=== PATIENT | female | born 1990 | race Caucasian/White ===

== ENCOUNTER 2024-08-17 08:00 | Outpatient (RCR) | payer MEDICAID, SELFPAY ==
--- NOTE | 2024-08-17 09:05 | BH.SGPN.GN ---
Behaviors/Verbalizations/Mental Status: [] Eye contact is poor. Motor activity is appropriate. Appearance is casual. Speech is Appropriate. Mood is anxious. Affect is congruent. Thoughts are linear and logical. No evidence of psychosis. Reviewed daily check in sheet and no reports of suicidal ideations or intent. Client Response/Progress/Benefit: [] Pt did not participate in group discussions and declined to share. Daily symptom tracker notes 5/5 for anxiety and 4/5 for depression. Today was pt?s first day in IOP level of care. No progress noted. Peer provided support and feedback/advice for her first day and week in IOP which was beneficial. Will continue in IOP to prevent decompensation, decrease anxiety, and improve functioning. Narrative Note: []
--- NOTE | 2024-08-17 10:10 | BH.SGPN.GN ---
Behaviors/Verbalizations/Mental Status: [] Eye contact is fair. Motor activity is appropriate. Appearance is casual. Speech is Appropriate. Mood is anxious. Affect is congruent. Thoughts are linear and logical. No evidence of psychosis. Client Response/Progress/Benefit: [] Pt was an active participant during group discussions and group activities. This portion of group was very psychoeducation heavy and pt was attentive during psychoeducation. Engaged during activity in which they identified which type of foods (i.e. carbs, sugar, salt, fast food, caffeine, etc) they seek out when sad, tired, angry, stressed, anxious, etc. Pt was able to identify the impact that certain foods have on their mental health through group example which was beneficial. Benefited from increased awareness of the connection between nutrition and mental health. Will continue in IOP to decrease anxious avoidance, challenge distortions, and prevent decompensation.
--- NOTE | 2024-08-17 11:10 | BH.SGPN.GN ---
Behaviors/Verbalizations/Mental Status: [] Client alert and oriented, casually dressed and groomed. Eye contact good. Motor activity appropriate. Speech within normal limits. Affect congruent, mood anxious and depressed. Thoughts linear, logical, no signs of hallucinations or delusions. Client Response/Progress/Benefit: []Client was an active participant throughout AEB contributing to group discussion and taking notes. Client provided input during small group discussion on strategies to combat each factor maintaining adverse nutritional cycles. Worked with group to identify ways to foster more mindful nutritional choices. Each group participant identified one small step they could take today to begin establishing mental wellness promoting nutritional choices. Client shared plans to practice drinking more water throughout the day.?Appeared to benefit from gaining insight into mental wellness centered nutrition and identifying personal steps client can take to support own nutritional psychology. Recommended continued IOP tx to improve mood stability, reduce avoidance, and prevent decompensation. Narrative Note: []
--- NOTE | 2024-08-17 14:45 | BH.MTP_ITS ---
Master Treatment Plan Patient Information Program Physician:: Dr. Ace Primary Therapist:: Neela Mike [facility] Psychiatric Diagnoses Psychiatric Diagnoses:: 1. Panic disorder 2. Generalized anxiety disorder 3. Major depressive disorder, recurrent, moderate Diagnosis Code(s):: F41.0; F41.1 Estimated LOS Estimated LOS (in weeks):: 8 Problem/Goal #1 Problem/Goal #1 Stated Goal:: Stabilize anxiety level while increasing ability to function and decreasing ruminative thoughts on a daily basis through Intensive Outpatient Program. Description of Barriers: Potential barriers include high anxiety, difficulty leaving the house, distorted thoughts, and panic attacks. Functional Impact: The patient is a 34-year-old female with a history of anxiety and depression and panic attacks who was referred by a friend to the [facility] behavioral health IOP due to new onset of daily panic attacks since June 2024. The patient states that her symptoms started June 29, 2024 when she had her first possible panic attack at work and went to urgent care but they told her the symptoms were more likely due to her history of migraine headaches. Several days later the patient had a severe panic attack at her uncle's and went to the emergency room and was given Ativan which helped her symptoms. The patient was off work for 3 weeks but has since returned to work after her primary care doctor prescribed Ativan. She e ndorses sadness, low motivation, hopelessness but denies worthlessness. She endorses guilt, anhedonia, low energy. She is sleeping about 5 hours a night. She is having 4-5 panic attacks a week. Objectives Objective #1: Stated Objective: Client will learn and implement 2-3 calming skills to reduce overall anxiety and manage anxiety symptoms. Interventions: Therapist and group sessions will help client identify physiological warning signs of anxiety, increase awareness of thoughts that increase anxiety, and identify behaviors that reinforce anxious symptoms. Group and individual counseling will teach client calming skills to help manage anxious symptoms. Discharge Criteria: Discharge Criteria: Client will have achieved this goal when can verbalize at least 2 calming skills and reports skills successfully help reduce anxious symptoms. Target Date: 10/12/24 Review Date: 09/14/24 Objective #2: Stated Objective: Client will identify 2-3 anxiety triggers and 2 coping skills to use when feeling anxious. Interventions: Therapist will assist client in exploring what triggers anxiety and teach client coping strategies to effectively manage anxiety symptoms. Discharge Criteria: Client will have met this goal when can identify at least 2 triggers to anxiety and verbalize two healthy ways to cope with feelings of anxiety. Target Date: 10/12/24 Review Date: 09/14/24 Problem/Goal #2 Problem/Goal #2 Stated Goal:: Client will reduce depressive symptoms, feelings of worthlessness, and anhedonia due to Major Depressive Disorder through Intensive Outpatient Program. Description of Barriers: Potential barriers include high anxiety, difficulty l eaving the house, distorted thoughts, and panic attacks. Functional Impact: The patient is a 34-year-old female with a history of anxiety and depression and panic attacks who was referred by a friend to the [facility] behavioral health IOP due to new onset of daily panic attacks since June 2024. The patient states that her symptoms started Novemb er 2023 when she had her first possible panic attack at work and went to urgent care but they told her the symptoms were more likely due to her history of migraine headaches. Several days later the patient had a severe panic attack at her uncle's and went to the emergency room and was given Ativan which helped her symptoms. The patient was off work for 3 weeks but has since returned to work after her primary care doctor prescribed Ativan. She endorses sadness, low motivation, hopelessness but denies worthlessness. She endorses guilt, anhedonia, low energy. She is sleeping about 5 hours a night. She is having 4-5 panic attacks a week. Objectives Objective #1: Stated Objective: Client will learn and implement 2-3 calming skills to reduce overall anxiety and manage anxiety symptoms. Interventions: Therapist and group sessions will help client identify physiological warning signs of anxiety, increase awareness of thoughts that increase anxiety, and identify behaviors that reinforce anxious symptoms. Group and individual counseling will teach client calming skills to help manage anxious symptoms. Discharge Criteria: Client will have achieved this goal when can verbalize at least 2 calming skills and reports skills successfully help reduce anxious symptoms. Target Date: 10/12/24 Review Date: 09/14/24 Objective #2: Stated Objective: Client will identify and replace 2-3 negative thinking patterns that reinforce depressive symptoms. Interventions: Therapist will assist client in developing an awareness of the cognitive messages that reinforce depressive thinking. Therapist will also assist client in challenging negative thinking patterns. Discharge Criteria: Client will have achieved this goal when can identify at least 2 negative thinking patterns, replace negative thinking with more positive, affirmative messages. Target Date: 10/12/24 Review Date: 09/14/24
--- NOTE | 2024-08-18 10:10 | BH.SGPN.GN ---
Behaviors/Verbalizations/Mental Status: [] Eye contact is good. Motor activity is appropriate. Appearance is casual. Speech is Appropriate. Mood is depressed. Affect is flat. Thoughts are linear and logical. No evidence of psychosis. Client Response/Progress/Benefit: [] Pt was an active participant in group discussions. Attentive during psychoeducation on the 4 communication styles (Passive, Passive-Aggressive, Aggressive, and Assertive) and the obstacles to effective communication. ?Self-identified a barrier they personally struggle with shutting down. Contributed during interactive discussion on the benefits of communicating effectively which included; having one's needs met, decreases stress and uncertainty, improved relationships, healthier boundaries, and avoids unnecessary conflict. Worked well with peers to identify the benefits and disadvantages to the different communication styles. Benefited from increased understanding of communication styles and how these can impact effective communication. Will continue in IOP to prevent decompensation, maintain safety, and gain healthy coping skills. Narrative Note: []
--- NOTE | 2024-08-18 10:16 | BH.MDN ---
Multi-Disciplinary Note Note 30-min Individual: Time Started:: 09:20 Date: 08/18/24 Purpose of session/treatment goals addressed:: Purpose of session was to address goals 1 and 2 from MTP. Eye Contact:: Poor Motor Activity:: Appropriate Appearance:: Neat Speech:: Soft Mood:: Anxious and Depressed Affect:: Constricted Thoughts:: Linear, Logical and No evidence of hallucinations/delusions noted Staff Interventions:: psychoeducation on: (cognitive triangle and anxiety), CBT techniques, rapport building, strengths perspective, treatment planning, goal setting and taught coping skills (breathing) Client Response:: Client shared she is seeking mental treatment for the first time due to struggling with panic attacks and depressed symptoms. Client stated last month she started to have panic attacks which she stated is something that she has never had previously. Client stated she struggled with anxiety off and on throughout her life but overall is been able to function and get through those moments. Client stated frustration that she has not been able to just move on. Client reported her panic attacks had gotten so bad that she had to take 3 weeks off work and now is back to work but can only make it through the day if she is taking her Ativan. Client stated she has attempted to go to work without her Ativan and it resulted in her having a panic attack. Client reported currently she goes to work and goes home. Client stated she is able to get her daily responsibilities completed at home and take care of her children but beyond that she does not do much. Client reported she is to be more engaged with family and friends and more outgoing but some struggling with this anxiety and depressed symptoms she is more isolated and withdrawn. Client responded well to psychoeducation about cognitive triangle recognizing that thoughts behaviors and emotions are interconnected. Client also responded well to psychoeducation about the negative impact avoidance of anxious situations can actually create more anxiety for her. Client could relate to the fact that she has a hard time going to social situations because she has been avoiding them. Client receptive to learning about diaphragmatic breathing and grounding tools. Client provided handouts that described belly breathing and grounding tools. Client stated while she is in IOP she would like to work on learning ways to manage her anxiety and depression better and to get back to her normal functioning. Client agreeable to start practicing belly breathing and grounding tools to start working on calming her nerves system back down and teach her body and brain how to relax again. Risks/Concerns:: Denies suicidal ideation, plan, intention. Future oriented. Identifies children as protective factor. Progress Toward Goals/Plan:: Progress limited given first week in IOP. Client does seem a bit anxious about opening up given she has never been in treatment before for mental health. Session focused on building rapport providing psychoeducation about mental health. Client reporting significant anxiety and depression that is making it challenging to function beyond being at work and home functioning. Client unable to work unless she is taking her Ativan. Plan is for client to continue IOP to improve daily functioning, increase healthy coping skills, and prevent decompensation. Time Stopped:: 09:55
--- NOTE | 2024-08-18 11:10 | BH.SGPN.GN ---
Behaviors/Verbalizations/Mental Status: []Pt alert and oriented, casually dressed. Eye contact fair. Motor activity appropriate. Speech within normal limits. Affect congruent, mood anxious. Thoughts linear, logical, no signs of hallucinations or delusions. Client Response/Progress/Benefit: [] Pt responded well to session AEB Pt listening attentively to others and providing input during group discussion on the pay offs and costs of the different communication styles. Pt able to connect how current communication style impacts mental health. Connected with peers? comments about importance of using assertive communication. Pt did well with practicing being assertive in the group activity and worked with group to identify potential skills for improving communication skills. Pt seemed to benefit from increasing awareness of healthy strategies to improve communication. Will continue IOP tx to improve daily functioning, decrease anxious avoidance, and prevent decompensation.
--- NOTE | 2024-08-23 09:00 | BH.SGPN.GN ---
Behaviors/Verbalizations/Mental Status: [] Eye contact is poor. Motor activity is appropriate. Appearance is casual. Speech is Appropriate. Mood is depressed. Affect is flat. Thoughts are linear and logical. No evidence of psychosis. Reviewed daily check in sheet and no reports of suicidal ideations or intent. Client Response/Progress/Benefit: [] Pt participated only when prompted. Distracted. Looking down at ground for majority of the group. Daily symptom tracker notes 4/5 for anxiety and 3/5 for depression/irritability. She shared however stated her mental health wins was ?making it in today?. Also reports that she ?got out of the house? this weekend. Possibility decreased isolation. Shared a stressor related to her daughter as well. Progress noted as she may be getting more comfortable in group setting as she shared. Benefited from group support, encouragement, and feedback. Will continue in IOP to prevent decompensation, stabilize anxiety, and improve functioning. Narrative Note: []
--- NOTE | 2024-08-23 10:10 | BH.SGPN.GN ---
Behaviors/Verbalizations/Mental Status: []Client alert and oriented, casually dressed and groomed. Eye contact good. Motor activity appropriate. Speech within normal limits. Affect congruent, mood anxious. Thoughts linear, logical, no signs of hallucinations or delusions. Client Response/Progress/Benefit: []Pt responded well to session AEB actively participating throughout group. Pt was attentive throughout group activity discussing famous individuals and how they overcame failure to be successful. Pt helped group identify how fear of failure can impact mental health and relationships. Pt personally identified fear of failure has led to pt not moving and staying stuck. Participated in experiential activity, working with group members to problem solve. Appeared to benefit from increased knowledge of what causes fear of failure and how it impacts people. Will continue IOP tx to prevent decompensation, improve daily functioning and learn healthy coping skills. Narrative Note: []
--- NOTE | 2024-08-23 11:10 | BH.SGPN.GN ---
Behaviors/Verbalizations/Mental Status: []Pt alert and oriented, casually dressed and groomed. Eye contact fair. Motor activity appropriate. Speech within normal limits. Affect congruent, mood anxious. Thoughts linear, logical, no signs of hallucinations or delusions. Client Response/Progress/Benefit: [] Pt responded well to session, engaged in the experiential activity and attentive throughout group processing. Pt reported fear of failure has kept pt from going back to school and moving out of state. Pt completed fear of failure worksheet and was able to identify thoughts and behaviors that reinforce personal fear of failure. Pt participated in small group discussion regarding strategies to overcome fear of failure. Identified wanting to work on opposite action and asking for help.?Appeared to benefit from increased knowledge of strategies to combat fear of failure and gaining self-awareness. Pt will continue IOP tx to increase use of healthy coping skills, challenge distorted thoughts, and prevent decompensation.
--- NOTE | 2024-08-25 10:00 | BH.NA_ITS ---
Physical Data Vital Signs Pulse Rate: 79 Blood Pressure: 148/99 Height/Weight Height: 1.68 m Weight:: 58.06 kg Weight in Pounds: 128.0 lbs Current Medication Compliance Medication Compliance Do you take your medication as prescribed?: Yes Nutritional History Appetite Nutritional Instructions: Describe your appetite:: Poor Additional nutritional information:: Client states she has lost about 17lbs in the last month unintentionally. Functional Assessment Sleep Pattern Describe any problems with sleeping: Client states she sleeps 4-5 hours per night. Sensory/Communication Assess Communication Problems Do you have difficulty understanding what people are saying?: No Medical Problems/History Cardiac Conditions Cardiovascular: Hypertension (history of hypertension, has been on medication for it in the past but not currently) and Other (See comments) (Client states she was told she had a heart murmur when she was in the ER in June 2024 and was told to follow up with cardiology) Neurological Conditions Neurological: Other (See comments) (migraines) Pain Assessment Do you have acute or chronic pain?: No Surgical History Surgical History Have you had any surgeries? If so, list type and date:: Yes ( x 1) Substance Abuse Substance Abuse Please describe substance abuse in the last 30 days:: Client denies alcohol, tobacco or substance use. Client denies caffeine use. Mental Status Summary Mental Status Significant Findings/Observations on Appearance and Mood:: Client is alert and oriented x 4. Client is casually groomed with good hygiene. Client is cooperative with assessment. Client makes fair eye contact. Client's voice has normal rate and volume. Client has a somewhat restricted affect. Client makes logical associations and has normal processing. Client denies delusions/hallucinations. Client denies SI. Suicide Assessment Suicidal Ideation Are you currently or have you been suicidal in the past?: No Suicidal Intentional Rating Scale (SIRS): No suicidal thoughts (past or present) Physician Notification Past Psychiatric History MH Treatment Hx Past Psychiatric Medications:: Was on Seroquel for about 2 weeks recently Age of first mental health symptoms: Client was started on Celexa in June 2024 after she started having panic attacks. Describe (age, circumstance, etc) any past hospitalizations: None. Current providers for mental health treatment (counselor, psychiatrist, field nurse case manager, etc.): None. Fall Risk Assessment Age Age: Less than 60 Mental Status Mental Status: Willing & able to ask for assistance when needed Physical Status Physical Status: No problems Impairments Impairments: None Elimination Elimination: Continent AND independent Gait or Balance Gait or Balance: Walks independently Hx of Falls History of falls in the past 6 months: No known history Medications/Substances Psychotropics:: Antidepressants and Anxiolytics (e.g. benzodiazepines) RN Summary of Impressions Impressions Recommendations Impressions: Psychiatric Issues: 1. Panic disorder 2. Generalized anxiety disorder 3. Major depressive disorder, recurrent, moderate Impression: General Medical Conditions: Discussed client's BP 148/99- client states she has a history of hypertension Level of Care How do the client's current symptoms and functional deficits support need for this level of care?: Client was referred to IOP by a friend due to recently having panic attacks. Client states she had never had panic attacks before June 2024, and has had fairly frequent panic attacks since then. Client states she went to the ER twice in June 2024 feeling like she was going to pass out with high BP and was told her symptoms were due to migraines. Later in June, client went to her uncle's and had a panic attack where her HR was 180, her body felt numb and her hands were so tense she could not open them. Client states she was given Ativan in the ER which did help. Client states after this, her PCP started on her Celexa and gave her PRN Ativan. Client states she is still having panic attacks at times now, but states sometimes she can reduce symptoms as they begin and they are not all debilitating panic attacks. IOP will promote gains and prevent further decompensation while providing social support and skills training.
[2024-08-25 10:17] VITALS: BP 148/99; PULSE 79
--- NOTE | 2024-08-25 12:36 | PCM.BH.PSYEV ---
Psychiatric Evaluation Initial Evaluation Initial Evaluation: History of Present Illness: [] The patient is a 34-year-old female with a history of anxiety and depression and panic attacks who was referred by a friend to the [facility] behavioral health IOP due to new onset of daily panic attacks since June 2024. The patient currently lives with her and children and has been for 5 years. She works as an [employer] full-time for the past year and enjoys her job. The patient states that her symptoms started June 29, 2024 when she had her first possible panic attack at work and went to urgent care but they told her the symptoms were more likely due to her history of migraine headaches. Several days later the patient had a severe panic attack at her uncle's and went to the emergency room and was given Ativan which helped her symptoms. The patient was off work for 3 weeks but has since returned to work after her primary care doctor prescribed Ativan. She has been isolating herself and has a hard time leaving the house and has difficulty socializing. For primary support she has a friend or her mom. She endorses sadness, low motivation, hopelessness but denies worthlessness. She endorses guilt, anhedonia, low energy. She is sleeping about 5 hours a night. She lost 17 pounds several months ago and 1 month due to the nausea but she did not vomit and feels this was all due to anxiety. Concentration is okay overall. She denies passive thoughts of , plan for suicide, suicidal ideation, homicidal ideation, hallucinations, delusions or symptoms of daniel ever. She is a worrier by nature but denies any racing thoughts. She is having 4-5 panic attacks a week. She is not using any energy drinks or caffeine. She denies OCD, eating disorder, trauma or PTSD. Denies seizure or head trauma. She has a history of cutting in the past but not since she was a teenager. Current Psychiatric Medications: [] Celexa 10 mg p.o. daily (x 1 month); Ativan 0.5 mg as needed up to twice daily and the patient has been using it about once a day lately. Seroquel was prescribed but discontinued 1 month ago because the patient felt very bad on it. Past Psychiatric History: [] No psych admits ever. No suicide attempts ever. No psychiatrist patient gets meds from PCP. She was first depressed in high school and first took her first psych meds in June 2024 which was Ativan and Seroquel. She has never had counseling and has not taken any other medications for psychiatric reasons. She has a history of cutting in her teenage years but nothing since. Substance Use History: [] Non-smoker. No vaping. No marijuana. No alcohol no drugs. Allergies: [] No known allergies Medications: [] No medications other than psych meds as dictated above. No supplements. Past Medical History: [] History of migraine headaches and hypertension. She has had a x 1 and 2 vaginal deliveries in the past. She is a 5 para 3 AB 2 female with a history of 2 miscarriages. She is not on control because her had a vasectomy. Family Psychiatric History: [] Mom is 70 and father is 69 years old. No known family history of any mental illness. No known history of substance use disorders and no completed suicides in the family. Personal/Social History: [] Patient was born and raised in [place] and describes her childhood as normal. Her parents were and loving. The patient is the sixth of 10 children and is close to her siblings. She denies any verbal, physical or emotional abuse growing up. 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 She has 3 biological children ages 13, 8 and 3. She has 2 stepchildren ages 16 and 14 who are the at her house a lot but actually lived with her mother. She got at age 28 and describes her marriage as okay. The patient 13-year-old biological child has a different father from her other 2. Legal History: [] No arrests. Has class a truck driver's license. No DUIs. Review of Systems: [] Occasional migraine headaches but review of systems otherwise negative except as noted in present illness. Vital Signs: [] Vital signs reviewed in the nurses notes and updated and the patient is deemed medically able to participate in the IOP. Mental Status Examination: [] The patient is a 34-year-old -[place] female who appears normal for stated age and is casually dressed and groomed with good hygiene. She is ambulatory with a normal gait and has no psychomotor agitation or retardation. She is cooperative but somewhat reticent during the interview. Eye contact is fair as she looks away often while talking. Speech is normal rate and rhythm and fluent with no pressure. Mood is anxious and depressed. Affect is constricted. Thought process is goal-directed and organized. Thought content: The patient is worried about panic attacks and has trouble leaving the house. There is no evidence of passive thoughts of , suicidal ideation, plan for suicide, homicidal ideation, hallucinations or delusions. Reality testing is intact. Intelligence is above average. Judgment is intact. Insight is limited but some present. Impulsivity is moderate. Diagnoses: [] 1. Panic disorder 2. Generalized anxiety disorder 3. Major depressive disorder, recurrent, moderate 4. Work issues Plan: [] The patient will start the [facility] and behavioral health at [facility] as the structure, support, education and group therapy will hopefully prevent worsening of the patient's symptoms which could require hospitalization. She felt safe during the interview and if it anytime she does not feel safe she agrees to let us know or go to the emergency room. The risk, options, possible complications and side effects of the medications were discussed with the patient and she understands accepts these. The patient agrees to increase her Celexa to 20 mg p.o. daily and prescription is sent in for this. Ativan is also renewed to be taken up to twice daily. The patient is encouraged to see her PCP and get her blood pressure under good control as [id number] blood pressure could be affecting her symptoms. At next visit we will discuss whether the patient's thyroids been checked recently and we will check that if it has not been checked. She will continue to follow-up with her outpatient providers and I will see the patient in follow-up in 2 weeks.
--- NOTE | 2024-08-25 12:48 | BH.DR.ITP ---
Initial Treatment Plan Patient Information Visit Information: ADMISSION DATE: EXPECTED LOS: 4-6 weeks Problems/Symptoms Problem #1:: Anxiety Symptom:: Panic attacks, avoidance, isolation, rumination, biological disruption of appetite Problem #2:: Depression Symptom:: Sadness, hopelessness, guilt, anhedonia, biological disruption of sleep and appetite, low energy
--- NOTE | 2024-08-27 09:05 | BH.SGPN.GN ---
Behaviors/Verbalizations/Mental Status: []? Eye contact is good. Motor activity is appropriate. Appearance is casual. Speech is Appropriate. Mood is anxious and depressed. Affect is constricted. Thoughts are linear and logical. No evidence of psychosis. Reviewed daily check in sheet and no reports of suicidal ideations or intent.? Client Response/Progress/Benefit: []? Pt was a passive but attentive participant in group discussion. Attentive. Shared with the group mental health wins including getting to group despite ongoing urges to cancel and stay home instead. Reported use of opposite action. Additional win noted as challenging herself to get out of the house and be social yesterday. Stressor noted as her daughter recently changing schools due to bullying. Progress noted. Benefited from group support, encouragement, and feedback. Will continue in IOP to prevent decompensation, increase healthy coping, and improve communication.? Narrative Note: []
--- NOTE | 2024-08-27 10:10 | BH.SGPN.GN ---
Behaviors/Verbalizations/Mental Status: [] Pt alert and oriented, casually dressed and groomed. Eye contact good. Motor activity appropriate. Speech within normal limits. Affect congruent, mood anxious,Thoughts linear, logical, no signs of hallucinations or delusions. Client Response/Progress/Benefit: [] Pt receptive to session AEB listening attentively to others, and taking notes. Worked with group to brainstorm the positive and negative aspects of stress on physical and mental health as well as the impact of distress on performance, relationships, and mental health. Pt shared their top stressors to be: work, marriage, and health issues. Benefited from increased awareness of positive and negative stress as well as how stress impact individuals. Will continue in IOP to increase functioning and prevent decompensation. Narrative Note: []
--- NOTE | 2024-08-27 11:10 | BH.SGPN.GN ---
Behaviors/Verbalizations/Mental Status: [] Pt alert and oriented, casually dressed and groomed. Eye contact good. Motor activity appropriate. Speech within normal limits. Affect congruent, mood anxious. Thoughts linear, logical, no signs of hallucinations or delusions. Client Response/Progress/Benefit: [] Pt was an attentive participant in group discussions and actively engaged during experiential activity, doing well to regulate their emotions throughout the activity and work with peers. Attentive during psychoeducation on the 4 A's (Avoid, adapt, alter, accept) of coping with stress. Shared that they would benefit from adapting approach to self talk to herself that it is going to be a good day even with stressor.. Was able to identify the connection between the experiential activity and utilization of stress management skills. Benefited from increased awareness of stress management strategies. Pt will continue IOP to challenge negative thoughts, and prevent decompensation. Narrative Note: []
--- NOTE | 2024-08-30 09:05 | BH.SGPN.GN ---
Behaviors/Verbalizations/Mental Status: [] Eye contact is poor. Motor activity is appropriate. Appearance is casual. Speech is Appropriate. Mood is anxious/irritable. Affect is congruent. Thoughts are linear and logical. No evidence of psychosis. Reviewed daily check in sheet and no reports of suicidal ideations or intent. Client Response/Progress/Benefit: [] Pt participated when prompted. Distracted. Mainly looking down at the floor or at her phone. Daily symptom tracker notes 4/5 for anxiety and 3/5 for depression and anxiety. Shared that mental health wins include working this weekend and getting to [facility] today. ? Work is stressful?. She opened up a little about her job and its impact on her mental health. Feeling ?tired?. Admits to struggling throughout the weekend with anxiety. Main coping skills is currently breathing techniques. Benefited from group support, encouragement, and feedback. Will continue in IOP to prevent decompensation, stabilize mood, and increase healthy coping.? Narrative Note: []
--- NOTE | 2024-08-30 10:15 | BH.SGPN.GN ---
Behaviors/Verbalizations/Mental Status: []Client alert and oriented, casually dressed and groomed. Eye contact good. Motor activity appropriate. Speech within normal limits. Affect constricted, mood depressed and irritable. Thoughts linear, logical, no signs of hallucinations or delusions. Client Response/Progress/Benefit: [] Pt was an active participant AEB taking notes and engaging in group activity. Connected with the topic of pitfalls and listened to group discussion on barriers that prevent from choosing a healthier path to mental wellness. Group worked together to identify examples of personal pitfalls. These examples included; shutting down, not asking for help, negative thinking patterns, and using substances. Pt benefited from group as Pt learned to better identify potential barriers to improving mental health symptoms. Pt will continue IOP tx to prevent decompensation, improve ability to manage anxiety, and improve daily functioning. Narrative Note: []
--- NOTE | 2024-08-30 11:15 | BH.SGPN.GN ---
Behaviors/Verbalizations/Mental Status: []Client alert and oriented, casually dressed and groomed. Eye contact good. Motor activity appropriate. Speech within normal limits. Affect congruent, mood anxious. Thoughts linear, logical, no signs of hallucinations or delusions. Client Response/Progress/Benefit: [] Pt receptive of session, engaged throughout AEB Pt actively listening and contributing to discussion as well as taking notes.? Pt participated in the experiential activity and did well to communicate ideas with peers and manage emotions. Pt attentive as group processed how the emotions and perspective of the group impacted the activity. Group worked together to identify different coping skills to help manage pitfalls. Pt identified a pitfall they struggle with as isolating and avoidance. Pt plans to work on their pitfall by taking breaths and taking small steps towards goals. Benefited from identifying personal pitfalls and strategies to overcome these pitfalls. Pt will continue IOP tx to prevent decompensation, improve daily functioning, and gain skills to manage anxiety. Narrative Note: []
--- NOTE | 2024-09-01 11:15 | BH.SGPN.GN ---
Behaviors/Verbalizations/Mental Status: []Client alert and oriented, casually dressed and groomed. Eye contact fair. Motor activity appropriate. Speech within normal limits. Affect constricted, mood anxious. Thoughts linear, logical, no signs of hallucinations or delusions. Client Response/Progress/Benefit: []Pt was engaged throughout AEB contributing to group discussion and activity. Group processed how they each responded to the intentionally difficult task they were asked to completed and described the physical and emotional anger cues experienced throughout, as well as strategies used for managing these frustrations. Pt contributed as group brainstormed healthy coping skills for better managing anger which included: music, walking/exercise, taking a break, healthy venting, avoiding unnecessary stressors, reflection, and journaling. Pt cooperative with working in small groups to identify what strategy wants to work on to help interrupt personal anger cycle. Pt to continue IOP to decrease anxious avoidance, challenge distorted thoughts, and prevent decompensation.
--- NOTE | 2024-09-01 13:37 | BH.MDN_ITS ---
Multi-Disciplinary Note Note 45-min Individual: Time Started:: 09:10 Date: 09/01/24 Purpose of session/treatment goals addressed:: Purpose of session was to address goals 1 and 2 from MTP. Eye Contact:: Fair Motor Activity:: Appropriate Appearance:: Neat Speech:: Soft Mood:: Anxious and Dysthymic Affect:: Constricted Thoughts:: Linear, Logical and No evidence of hallucinations/delusions noted Staff Interventions:: thought challenging, CBT techniques, rapport building, strengths perspective, goal setting and taught coping skills Client Response:: Client shared last few days been more difficult because she woke up in a panic attack 3 days ago and feels like she has been struggling with panic attacks for the last 3 days. Client reports she is sleeping about 4 to 5 hours a night with several disruptions while she is sleeping. Client re ported she tried to not take her Ativan on Friday or Friday when she went to work but ended up having to take it while she was at work because she started to have anxiety attack. Client stated she has been trying to practice the breathing tools that were reviewed in last individual session. Client stated when she does use the skills she can notice some decrease in her anxiety. Client stated a significant stressor that she has been thinking about is her marriage issues. Client stated lately she has been even considering exploring divorce from her because she is not happy with how things are going. Client reported she feels like a single parent sometimes even though he is around. Client stated she is getting frustrated that she has to remind him to do things when he does not have to remind her to do things for the kids. Client agreed to not hampton into any big changes with her marriage and so she takes some time to reflect and think things through. Client stated she has noticed some frustration within her marriage prior to struggling with her mental health but reports those issues are highlighted now that she cannot function like she used to. Client reported her is just used to her being able to get everything done but now that she is having a hard time taking care of herself it is more apparent that she does a lot of the taking care of children respons ibilities. Client reported she does think her marriage struggles are likely negatively impacting her mental health. Client agreeable for homework to write a list of things she appreciates about her and things she would like to see improve. Risks/Concerns:: Client denies suicidal ideation, plan, or intention to date. future oriented. children identified as protective factor. Progress Toward Goals/Plan:: Client progress variable. Client reporting increased panic attacks for the last three days. Client stated her anxiety negatively impacting her sleep. Client reported she gets about 4-5 hours of sleep every night, but noted it is broken up. Client reporting use of breathing skills to help brain and body calm down when anxious. client still needed Ativan to make it through full work day. Client starting to open up more in individual therapy and sharing about some issues that could be contributing to her mental health struggles. Plan is for client to continue IOP to increase use of healthy calming tools, challenge distortions, and prevent decompensation. Time Stopped:: 10:00
--- NOTE | 2024-09-01 15:00 | BH.SGPN.GN ---
Behaviors/Verbalizations/Mental Status: [] Eye contact is good. Motor activity is appropriate. Appearance is casual. Speech is Appropriate. Mood is anxious and depressed. Affect is constricted. Thoughts are linear and logical. No evidence of psychosis Client Response/Progress/Benefit: [] Pt responded well to session AEB attention to group discussion, taking notes, and listening attentively to others. Group defined anger and discussed the benefits of managed anger and anger as a secondary emotion. Group shared perspective on benefits of anger as advocating for self and getting needs met, as well as a catalyst for change. Pt remained attentive throughout group discussion on common underlying emotions that mask as anger. Identified feeling anxious as a common secondary emotion to anger. Appeared to benefit from increased knowledge of the anger cycle as well as personal triggers. Will continue IOP to increase healthy coping, prevent decompensation, and improve functioning. Narrative Note: []
--- NOTE | 2024-09-06 09:05 | BH.SGPN.GN ---
Behaviors/Verbalizations/Mental Status: [] Eye contact is poor. Motor activity is appropriate. Appearance is casual. Speech is Appropriate. Mood is depressed. Affect is flat. Thoughts are linear and logical. No evidence of psychosis. Reviewed daily check in sheet and no reports of suicidal ideations or intent. Client Response/Progress/Benefit: [] Pt did not participate in group discussions. Distracted and did not appear interested. Daily symptom tracker notes 3/5 for depression, anxiety, and irritability. Spent majority of the group looking down at her phone. Declined to share. Did provide feedback on one occasion to peer however that was extent of participation. No progress noted. Limited benefit. Remains disengaged during process group therefore obtaining little support or feedback from peers. Will continue in IOP to prevent decompensation, increase healthy coping, and improve functioning. Narrative Note: []
--- NOTE | 2024-09-06 10:10 | BH.SGPN.GN ---
Behaviors/Verbalizations/Mental Status: []Client alert and oriented, casually dressed and groomed. Eye contact good. Motor activity appropriate. Speech within normal limits. Affect constricted, mood anxious. Thoughts linear, logical, no signs of hallucinations or delusions. Client Response/Progress/Benefit: [] Pt was an attentive and active participant, AEB taking notes and providing input in group discussion when prompted. Attentive during psychoeducation. Pt engaged during interactive discussion in which the group defined self-care and discussed its benefits. Group discussed barriers to engaging in self-care. Group members together came up with guilt, time, ?people pleasing?, not knowing what to do, and perception that its unproductive as barriers to engage in self-care. Pt identified personal barrier as other things take priority and time. Pt participated in small groups where they worked to identify and challenged common self-care ?myths?. Benefited from increased awareness of self-care, its benefits, and the consequences of not utilizing self-care strategies. Will continue IOP tx to improve mood stability, promote use of healthy coping skills, and prevent decompensation. Narrative Note: []
--- NOTE | 2024-09-06 11:10 | BH.SGPN.GN ---
Behaviors/Verbalizations/Mental Status: []Client alert and oriented, neatly dressed and groomed. Eye contact poor. Motor activity appropriate. Speech within normal limits. Affect flat, mood anxious. Thoughts linear, logical, no signs of hallucinations or delusions. Client Response/Progress/Benefit: [] Pt taking notes during discussion reviewing different areas of self-care and completing self-assessment of current self-care, as well as providing input throughout discussion. Did well to complete self-care self-assessment worksheet. Pt identified how pt is doing in each category and what self-care activities pt wants to start using. Pt selected spiritual self-care to begin practicing more consistently. Pt plans to do this by praying daily. Appeared to benefit from completing the self-care evaluation and gaining insights into current self-care practices, as well as identifying areas in which pt would like to improve upon. Pt will continue IOP tx to prevent decompensation, improve daily functioning, and reduce avoidance. Narrative Note: []
--- NOTE | 2024-09-08 14:37 | BH.TPR ---
Treatment Plan Review Demographics Date of Admission:: 08/17/24 Date of Treatment Plan Review:: 09/08/24 Admitting Diagnoses:: 1. Panic disorder F41.0 2. Generalized anxiety disorder F41.1 3. Major depressive disorder, recurrent, moderate Current Diagnoses:: 1. Panic disorder F41.0 2. Generalized anxiety disorder F41.1 3. Major depressive disorder, recurrent, moderate Patient Status Patient's Response to Treatment:: Client consistent attends IOP sessions. Client is a more passive participant during group sessions, which client states she gets anxious around others currently. Client is starting to open up more in individual therapy sessions, at first appeared guarded. Status of Current Problems and Symptoms: Ongoing problems. Client continuing to report moderate depressed symptoms. Client notes slight improvement in anxiety, but is still reporting moderate anxious symptoms. Client continuing to report needed to take Ativan in order to get through a full work day. Client starting to use calming breathing skills to help with anxious symptom management. Client reporting increased sleep issues due to her anxious symptoms. Lack of sleep is contributing to increased agitation on a daily basis. Progress Problem #1: Problem Name:: Anxiety Status of Goals:: Obj 1 - progress noted, ongoing work encouraged. Client is reporting more consistent use of healthy calming skills like belly breathing, grounding, and taking a step away from a situation. Client still reporting use of Ativan to help her get through work day. Per DSM 5 cross-cutting measure client's anxiety decreased by 25%. Obj 2 - not met. Client still working on identifying her anxiety triggers. Client working on coping skills to help with managing anxiety in the moment. Team Recommendations:: Team recommends to continue current goals and objectives to give time for consistent use of skills and decrease in mental health symptoms. Problem #2: Problem Name:: Depression Status of Goals:: Obj 1 - slight improvement noted. Client reports use of opposite action to help her accomplish tasks throughout the day. Client has struggled with low motivation and not feeling like doing anything beyond her required responsibilities. Client able to identify healthy coping skills for depression like opposite action, changing environment, and socialization. Client starting to put effort into reaching out to her supports to decrease isolation. Obj 2 - not met. Client can identify triggers, but needs continued practice on use of skills to manage triggers. Team Recommendations:: Team recommends to continue current goals and objectives to give time for consistent use of skills and decrease in mental health symptoms.
--- NOTE | 2024-09-09 10:00 | BH.SGPN.GN ---
Behaviors/Verbalizations/Mental Status: [] Pt alert and oriented, casually dressed and groomed. Eye contact good. Motor activity appropriate. Speech within normal limits. Mood: dysthymic and anxious. Affect: congruent. Thoughts linear, logical, no signs of hallucinations or delusions. Client Response/Progress/Benefit: [] Pt participated when prompted during group discussions. Attentive during psychoeducation on self-sabotage and its impact on mental health. Attentive as group identified different types of self-sabotage such as; procrastination, self-medicating, unrealistic expectations, people-pleasing, and poor boundaries. Attentive during group discussion on reasons for self-sabotage behaviors (feels comfortable, fear of failure, false sense of control, low self-worth, and fear of being vulnerable). Seemed to benefit from gaining awareness about the self-sabotage. Pt to continue IOP tx to prevent decompensation, stabilize mood, increase healthy coping, and improve functioning.
--- NOTE | 2024-09-09 11:10 | BH.SGPN.GN ---
Behaviors/Verbalizations/Mental Status: []Pt alert and oriented, casually dressed and groomed. Eye contact fair. Motor activity appropriate. Speech within normal limits. Affect congruent, mood dysthymic. Thoughts linear, logical, no signs of hallucinations or delusions. Client Response/Progress/Benefit: []Pt responded well to session, attentive and providing input. Pt worked on his mental health wellness garden picture and discussed things that contribute to mental wellness in his life. With peers, pt discussed things that would sabotage one's mental health wellness and added it to the garden metaphor. Pt identified things pt personally does to sabotage as running on empty and not asking for help. Pt attentive during psychoeducation on ways to reduce self-sabotage. Pt appeared to benefit from learning skills and gaining awareness of self-sabotaging behaviors. Pt will continue IOP tx to decrease anxious avoidance, increase use of healthy coping skills, and prevent decompensation.
--- NOTE | 2024-09-09 14:47 | BH.MDN_ITS ---
Multi-Disciplinary Note Note 45-min Individual: Time Started:: 09:20 Date: 09/09/24 Purpose of session/treatment goals addressed:: Purpose of session was to address goals 1 and 2 from MTP. Eye Contact:: Fair Motor Activity:: Restless Appearance:: Casual Speech:: Appropriate Mood:: Anxious Affect:: Constricted Thoughts:: Linear, Logical and No evidence of hallucinations/delusions noted Staff Interventions:: thought challenging, CBT techniques, mindfulness skills, rapport building, strengths perspective, goal setting (created goal tracker), taught coping skills and other (Practiced 3 minute guided meditation) Client Response:: Client reported this week she had a panic attack while at work when she tried to go without taking her Ativan. Client reported she stepped away when she was having her panic attack and took her medication then w as able to go back to work. Client stated she often feels physical symptoms first which then trigger anxious thoughts and lead to the for long panic attack. Client stated she also has been struggling with sleeping due to being woken up by her anxiety. Client states she is getting about 4 to 5 hours of sleep but it is broken up throughout the night. Client stated when she gets woken up from her anxiety typically takes her 1 to 2 hours before she can fall back asleep. Client stated her heart will be racing and to have a hard time because her brain is racing to go back to sleep. Discussed when she wakes up in the middle night with anxiety to get out of bed and go do either guided meditation or color or something else that might be calming and help get her nervous system back down so that she may be able to fall back asleep faster. Client reported she completed homework from last individual session of writing down things she appreciates about her and things that she feels like need improved upon. Client stated she does think that her is a good dad and although she thinks he needs a better job she recognizes that he is at least working. Client stated areas in which she feels like there needs to be some improvement in including how he manages their children's behavior, treating the oldest daughter different than the kids that patient and have had together, feeling like he raises his voice and yells too often, and frustration that he avoids having difficult conversations. Client reported she had texted him the other day that she wants to sit down and have a conversation and he just did not respond and texted her about something different. Client stated she is somewhat over being the one that has to constantly try to fix things when he does not put the effort into talking about how things are going and how to improve their relationship. Client reported in the last 2 weeks he has stepped up with doing things at the home but from her perspective feels like he is only doing that because he knows she is unhappy but will not talk to her about it. Client stated she knows the relationship is impacting her mental health, something that she does not need to address at some point. Client reported since she has never been in therapy before she was reflecting over the weekend that maybe it would be helpful for her to also talk about things that happened in her childhood and maybe process the of her brother when she was only 19 years old and she saw him as a father figure to her. Client agreed it might be helpful for her to get co nnected with outpatient therapist that can either do grief work or trauma work to help her work through some of the things that has happened in the past that might be still impacting her today. Client shared she also thinks it would be helpful for her to have some direction on what to work on to help her feel like she is progressing. Therapist and client work together to create a goal tracker which she identified tubal she will to track is engaging in exposure goals to decrease avoidance of anxious situations and to get out of the house at least once per week to hang out with either her family or friend. Responded well to psychoeducation about cognitive triangle recognizing that sometimes she has engaged in behavior activation even when she does not want to do something. Risks/Concerns:: Denies suicidal ideation, plan, intention. Future oriented. Progress Toward Goals/Plan:: Progress limited. Client still reporting occasional panic attacks specially at work when she does not take her Ativan. Client has not made it through the workday without having her Ativan because of high anxiety. Client starting to open up a little bit more in individual therapy, letting her guard down. Client and therapist practiced a guided meditation in session today and therapist encouraged client to practice either breathing or meditation at least once per day to help decrease her anxiety and help her body relax. Plan is for client to continue IOP to decrease anxious avoidance, increase consistent use of healthy coping skills, and prevent decompensation. Time Stopped:: 10:00
--- NOTE | 2024-09-10 09:05 | BH.SGPN.GN ---
Behaviors/Verbalizations/Mental Status: [] Eye contact is poor. Motor activity is appropriate. Appearance is casual. Speech is Appropriate. Mood is depressed. Affect is flat. Thoughts are linear and logical. No evidence of psychosis. Reviewed daily check in sheet and no reports of suicidal ideations or intent. Client Response/Progress/Benefit: [] Pt participated when prompted. Attentive at times however mainly looks down at the floor when peers are talking. Provides no feedback. Daily symptom tracker notes 4/5 for depression and anxiety as well as 3/5 for agitation. Very brief check-in. Still struggles to be vulnerable in group. Shared recent stressors and their impact on her mental health and motivation. Did not elaborate much. Limited progress noted. Some benefit from support and empathy. Will continue in IOP to prevent decompensation, increase functioning, and implement healthy coping. Narrative Note: []
--- NOTE | 2024-09-10 10:05 | BH.SGPN.GN ---
Behaviors/Verbalizations/Mental Status: [] Eye contact is good. Motor activity is appropriate. Appearance is casual. Speech is Appropriate. Mood is depressed and anxious. Affect is congruent. Thoughts are linear and logical. No evidence of psychosis. Client Response/Progress/Benefit: [] Pt engaged participant AEB listening to others, engaging in activity, and providing feedback throughout. Attentive during psychoeducation and provided insight into obstacles that impede mental wellness. Pt chose shared with group current mental health reality and desired mental health reality, noting she would like to feel more present in her relationship and pursue being an RN. Attentive to others that shared. Identified barriers to desired reality include: isolation, lack of communication, and fear of failure. Benefited from taking look at current mental health state and obstacles for progress. Pt to continue IOP tx to improve coping repertoire, challenge negative self-talk, and prevent decompensation. Narrative Note: []
--- NOTE | 2024-09-10 11:05 | BH.SGPN.GN ---
Behaviors/Verbalizations/Mental Status: [] Eye contact is good. Motor activity is appropriate. Appearance is casual. Speech is Appropriate. Mood is dysthymic and anxious. Affect is congruent. Thoughts are linear and logical. No evidence of psychosis Client Response/Progress/Benefit: [] Pt was engaged at times during group discussions and was attentive during group activity. Worked with peers to identify strategies to help overcome barriers and obstacles to desired reality. Group worked together to develop strategies for the common barriers. Identified personal barriers to desired reality and chose one obstacle to work. Pt stated pt wants to work on lack of motivation and identified a strategy to opposite-action. Pt seemed to benefit from increased knowledge of practical strategies to overcome common barriers to moving forward. Will continue in IOP to prevent decompensation, increase healthy coping, and improve functioning. Narrative Note: []
== END 2024-09-10 23:59 ==
LOC: BHIOP 08:00
PROVIDERS: Referring Provider Psychiatry & Neurology Psychiatry; Visit Provider Psychiatry & Neurology Psychiatry
DX: F41.0 Panic disorder [episodic paroxysmal anxiety] (principal); F41.1 Generalized anxiety disorder; F33.0 Major depressive disorder, recurrent, mild
CPT/HCPCS: H2012; H2020; S9480; 90832; 90834

== ENCOUNTER 2024-09-13 07:15 | Outpatient (RCR) | payer MEDICAID, SELFPAY ==
[2024-09-11 02:37] VITALS: BP 148/99; PULSE 79
--- NOTE | 2024-09-15 09:00 | BH.SGPN.GN ---
Behaviors/Verbalizations/Mental Status: []? Eye contact is good. Motor activity is appropriate. Appearance is casual. Speech is Appropriate. Mood is dysthymic. Affect is congruent. Thoughts are linear and logical. No evidence of psychosis. Reviewed daily check in sheet and no reports of suicidal ideations or intent? Client Response/Progress/Benefit: []? Pt engaged throughout, providing supportive feedback. Did well to identify mental health wins, which included getting here today and feeling less anxious in doing so. Noted that IOP tx has become more of a routine. Additional win noted as challenging herself to make plans to get dinner withher sister rather than isolate like she would usually. Stressor noted as her kids currently being sick and struggling with managing their illness and balancing work. Progress noted. Benefited from group support and encouragement. Recommended continued IOP tx to maintain mood stability, increase confidence, and prevent decompensation. Narrative Note: []
--- NOTE | 2024-09-15 10:10 | BH.SGPN.GN ---
Behaviors/Verbalizations/Mental Status: []Eye contact is good. Motor activity is appropriate. Appearance is casual. Speech is Appropriate. Mood is dysthymic. Affect is congruent. Thoughts are linear and logical. No evidence of psychosis. Client Response/Progress/Benefit: []Pt was an active participant in group discussion. Engaged and attentive during psychoeducation and interactive discussion on coping skills, why people use unhealthy coping skills, how to replace unhealthy coping skills, and internal vs external coping skills. Attentive as peers came up with list of unhealthy coping skills. Pt reported personally, pt does not ask for help when she struggles which leads to more symptoms and stressors. Group discussed the effects of maladaptive coping skills on mental health. Benefited from increased understanding of unhealthy coping skills and the need for developing healthy internal and external coping skills. Actively participated during experiential group activity and was able to related this activity to group topic. Will continue in IOP to promote use of healthy coping skills, reduce avoidance, and improve self-confidence. Narrative Note: []
--- NOTE | 2024-09-15 11:10 | BH.SGPN.GN ---
Behaviors/Verbalizations/Mental Status: []Pt alert and oriented, casual in appearance. Eye contact fair. Motor activity appropriate. Speech within normal limits. Affect constricted, mood anxious. Thoughts linear, logical, no signs of hallucinations or delusions. Client Response/Progress/Benefit: [] Pt engaged participant AEB provided contributions during discussion, taking notes, and listening attentively to others. Engaged in the provided activity. Group discussed the different categories of coping skills which included distraction, emotional release, grounding, self-love, and thought challenging. Pt participated in creating a coping skills ?menu? from the different categories of coping skills. Pt's coping skill menu included: breathing skills, guided meditation, talking with supports, self-care, and looking at evidence against. Appeared to benefit from increasing repertoire of healthy coping skills. Will continue IOP to challenge negative thoughts, increase healthy coping, and prevent decompensation.
--- NOTE | 2024-09-20 10:10 | BH.SGPN.GN ---
Behaviors/Verbalizations/Mental Status: [] Client Response/Progress/Benefit: [] Narrative Note: []
--- NOTE | 2024-09-20 11:05 | BH.SGPN.GN ---
Behaviors/Verbalizations/Mental Status: []Pt alert and oriented, casually dressed and appropriately groomed. Eye contact good. Motor activity appropriate. Speech within normal limits. Affect congruent, mood anxious. Thoughts linear, logical, no signs of hallucinations or delusions. Client Response/Progress/Benefit: [] Pt engaged in session AEB Pt listening attentively to peers and providing input. Attentive during psychoeducation on 4 zones of regulation. Pt able to identify feelings and behaviors for each zone. Pt identified coping skills one can use to support self in each zone. Pt reported feeling in the blue and yellow zones today because pt feels ?sad, anxious, and worried.? Pt stated coping skills pt wants to practice in each zone include: goal setting, positive self-talk, and opposite action. Pt reported having one on one therapy was helpful today and that she can talk with a friend after group. Benefited from increased education on zones of regulation or stages of alertness for emotions and healthy coping skills to use for each zone. Will continue IOP tx to improve daily functioning, reduce isolation, and improve mood stability. ? Narrative Note: []
--- NOTE | 2024-09-20 11:20 | BH.MDN ---
Multi-Disciplinary Note Note 45-min Individual: Time Started:: 09:15 Date: 09/20/24 Purpose of session/treatment goals addressed:: Purpose of session was to address goals 1 and 2 from MTP. Eye Contact:: Fair Motor Activity:: Appropriate Appearance:: Neat Speech:: Appropriate Mood:: Anxious and Dysthymic Affect:: Congruent Thoughts:: Linear, Logical and No evidence of hallucinations/delusions noted Staff Interventions:: thought challenging, motivational interviewing, CBT techniques, rapport building, strengths perspective, goal setting and taught coping skills (self-care wheel) Client Response:: Client reported she has been struggling since Friday with increased depressed symptoms. Client stated that she was sick last week and the kids were sick which led to more laying around. Client stated Friday she felt more anxious, irritable, and depressed and started to feel like she did not want to do anything. Client reported she then had a stressor at work in which her loading and unloading supervisor as wrote her up for attendance issues despite client reporting having doctor notes for her time that she had taken off. Client stated she was irritated because her loading and unloading supervisor would not give her a copy of the write up or send the handbook that went over the attendance rules to client. Client reported the rest of the week was more of a struggle for her with only going to work and staying home. Client stated she did not want to do anything or talk to anyone besides her kids. Client stated on Friday she used some opposite action to make herself go to a family's birthday constitution party with her family. Client stated she did feel slightly anxious while heading to the constitution party but once she got there she felt okay. Client reported she does wish she could just take time away from work and from most people to just have some space and peace. Client agreed she is kind of wanting to isolate which she recognizes has not helped her in the past. Client stated she almost impulsively quit IOP last week and almost put in her 2-week notice at work. Client reported she was able to refrain from following those impulses because recognizes that is not something she is thinking out but just has the impulse to avoid extra things. Client stated he does feel like the last week she has taken some steps backwards in her progress but on the other hand thinks having some space for herself can be good. However client did share that on her days off work beyond coming to IOP she mostly either sits on the couch or lays in her bed. Therapist reviewed cognitive triangle and tried to help client see that if she continues engage in isolated behaviors and the anxious avoidance it likely will only worsen her depression anxiety. In further discussion client stated she does not feel like she does a good job of engaging in self-care beyond getting her nails and hair done. Client stated she is so used to just taking care of others that she has not taken the time to focus on her own needs. Client reported this might be why she is having that urge to tell her family and friends that she is good to get set back from responding to them unless it is an absolute need. Therapist reviewed self-care we will explaining that self-care encompasses more than just 1 piece and that we need to make sure taking care of the whole person. Therapist provided client a blank self-care we will ask client to start to fill out what current self-care practice using engaging in and neck session will discuss what areas she feels like she needs to increase her self-care activities. Risks/Concerns:: Denies suicidal ideation, plan, intention. Future oriented. Client has reported she stopped taking her Celexa 2 weeks ago because she does not like taking medications and was hopeful she would be okay without taking this medication. Client stated she is willing and wanting to get back on the Celexa and will start taking that tomorrow. Progress Toward Goals/Plan:: Slight decompensation noted with client reporting increased depression. Client stated she does notice her anxiety is more manageable at times and she is not having as many panic attacks as she was pre-IOP. Client stated what she is noticing her revert back to is more isolation and not wanting to do anything beyond her required responsibilities. Client stated she does have plans to go out to dinner with her god sister which is something they have planned every 2 weeks. Client reported part of her wants to take a step back from her family at times because they constantly ask if she is okay which she reported can be frustrating. Client's start focusing and reflecting on her current self-care practices because she is so used to taking care of others that often she forgets to care for her own basic needs. Client is to continue IOP to increase utilization of healthy coping skills, improve daily functioning, and prevent decompensation. Time Stopped:: 10:00
--- NOTE | 2024-09-23 10:10 | BH.SGPN.GN ---
Behaviors/Verbalizations/Mental Status: [] Eye contact is fair. Motor activity is appropriate. Appearance is casual. Speech is Appropriate. Mood is anxious. Affect is congruent. Thoughts are linear and logical. No evidence of psychosis. Client Response/Progress/Benefit: [] Pt was an active participant during interactive group discussions. Along with peers contributed to interactive discussion on defining what a boundary is in mental health. Pt along with peers identified challenges to setting boundaries which included: people pleasing, fear of rejection, fear of loss, fear people won't respect the boundary. Pt stated a personal barrier to setting boundaries is the worry she won't be enough for someone. Pt along with peers identified the benefits to setting boundaries such as reduces assumptions, can reduce stress, improve communication/relationships, and can keep us safe. Attentive during psychoeducation on types of boundaries (rigid, porous, flexible). Pt benefited from increased awareness and insight on the importance/benefit to setting health boundaries. Will continue in IOP to challenge distortions, improve consistent use of healthy coping skills, and prevent decompensation.
--- NOTE | 2024-09-23 10:14 | BH.MDN_ITS ---
Multi-Disciplinary Note Note 30-min Individual: Time Started:: 09:15 Date: 09/23/24 Purpose of session/treatment goals addressed:: Purpose of session was to address goals 1 and 2 from MTP. Eye Contact:: Fair Motor Activity:: Appropriate Appearance:: Neat Speech:: Appropriate Mood:: Anxious and Dysthymic Affect:: Congruent Thoughts:: Linear, Logical and No evidence of hallucinations/delusions noted Staff Interventions:: thought challenging, CBT techniques, discharge planning, strengths perspective, goal setting and other (self-care wheel; creating nighttime sleep routine) Client Response:: Client shared she did the self-care wheel provided from last individual session. Client could identify 2-3 things for most areas of self-care. Client stated she would like to increase/improve her personal self- care. Client stated she would like to engage in activities in which she focuses on her own needs at times. Client reported she often focuses on taking care of others which can lead her to not get her own needs met. Client stated she knows spending more time with her friends, but has been struggling to do so because hasn't been feeling like doing anything social. Client reported she is going to use opposite action tonight to go out to dinner with her god-sister. Client reported another area that would be good to work on his improving her sleep. Client reported several nights a week she has a hard time falling asleep at a decent time because she has a hard time settling down and is experiencing physical symptoms. Therapist recommended client establish a nighttime routine that she can follow consistently. Client reported she doesn't really have a consistent routine that she follows. Client shared she would like to be in bed by 10:30pm. Client stated willingness to work on creating a nighttime routine. Encouraged client to add guided meditation to her bedtime routine. Client reported there have been some days that she's been able to make it through work without taking Ativan. Client stated when she does get anxious at work she will go into a quiet room and use breathing to help her calm down. client stated there are some times when the space and breathing will help her calm down and other times she will still need to take Ativan to make it through the day. Client encouraged to continue working on not taking the Ativan right away and to use coping skills first to help continue decreasing need for Ativan. Risks/Concerns:: Denies suicidal ideation, plan, or intention to date. future oriented. Progress Toward Goals/Plan:: Client continuing to report experiencing lack of desire to do anything beyond work and being home with her family. Client is going to practice more opposite action to engage in socialization and do things that she enjoys. Progress noted with client being able to make it through a few days at work without taking her Ativan. Plan is for client to continue IOP to increase consistent use of healthy coping skills, challenge distorted thoughts, and prevent decompensation. Time Stopped:: 09:50
--- NOTE | 2024-09-23 11:05 | BH.SGPN.GN ---
Behaviors/Verbalizations/Mental Status: []Eye contact is good. Motor activity is appropriate. Appearance is casual. Speech is Appropriate. Mood is anxious. Affect is constricted. Thoughts are linear and logical. No evidence of psychosis. Client Response/Progress/Benefit: [] Pt responded well to session AEB listening attentively to peers and taking notes throughout. Reports connecting with porous and rigid boundaries. Pt shared she can be porous which ?helps me help others, but I run on empty? and rigid boundaries help her by keeping her safe, but it keeps her from making friends. Participated in group discussion brainstorming various strategies for improving healthy boundary setting. Pt identified wanting to ?reflect on what boundaries have changed for me and why.? Seemed to benefit from increased awareness of how different boundary styles can impact mental health. Will continue IOP tx to promote mood stability, reduce negative thinking, and improve daily functioning. Narrative Note: []
--- NOTE | 2024-09-24 09:00 | BH.SGPN.GN ---
Behaviors/Verbalizations/Mental Status: [] Eye contact is fair, often looking at phone to avoid eye contact. Motor activity is appropriate. Appearance is casual. Speech is Appropriate. Mood is anxious. Affect is congruent. Thoughts are linear and logical. No evidence of psychosis. Reviewed daily check in sheet and no reports of suicidal ideations or intent. Client Response/Progress/Benefit: [] Pt was an active participant in group discussion. Attentive. Daily symptom tracker notes 3/5 for depression, 3/5 for anxiety, and 3/5 for agitation. Shared with the group mental health wins including getting to group today despite wanting to avoid and sleep. Identified reminding herself of the importance of showing up for herself and benefits of attending group. Shared an additional win as meeting up with two friends and socializing rather than isolating yesterday, noting this had been a positive experience. Progress noted. Benefited from group support, encouragement, and feedback. Will continue in IOP to prevent decompensation, increase healthy coping, and improve communication. Stressor noted as recent issues with her memory. Progress noted. Benefited from group support, encouragement, and feedback. Will continue in IOP to prevent decompensation, increase healthy coping, and improve communication. Narrative Note: []
--- NOTE | 2024-09-24 10:10 | BH.SGPN.GN ---
Behaviors/Verbalizations/Mental Status: []Pt alert and oriented, casually dressed and groomed. Eye contact good. Motor activity appropriate. Speech within normal limits. Affect congruent, mood anxious. Thoughts linear, logical, no signs of hallucinations or delusions. Client Response/Progress/Benefit: [] Pt participated during small group discussions. Attentive during psychoeducation about defense mechanisms. Showed engagement during small group discussions and helped group identify which defense mechanisms were maladaptive, adaptive, or ?somewhere in the garcia.? Pt worked with small group on identifying how each defense mechanism can impact mental health and gave examples. ?Seemed to benefit from gaining awareness about the different defense mechanisms. Pt to continue IOP tx to promote use of healthy coping skills, challenge distorted and negative thoughts, and increase distress tolerance skills. Narrative Note: []
--- NOTE | 2024-09-24 11:28 | PCM.BH.PN_ITS ---
Progress Note Progress Note: History of Present Illness: The patient is a 34-year-old female with a history of anxiety and depression and panic attacks who was seen in follow-up evaluation as part of the IOP today. Patient reports that she has had a set back. Has been having more more anxiety and worsening depression. Anxiety and panic symptoms have been bad and feel like they are even happening when she is asleep. Reports that she has not had full blown panic attacks but does manifest itself as significant anxiety. Had not been taking her citalopram regularly and just restarted medication this week. Was off of medications about a 2-week duration prior to restarting. Does feel like when she was taking it helped stabilize her mood. Sleep has been broken. Appetite has been improved in recent past. Current Psychiatric Medications: Celexa 10 mg p.o. daily (had not been taking the previous 2 weeks); Ativan 0.5 mg as needed up to twice daily using infrequently. Mental Status Examination: [] The patient is a 34-year-old -Citizen Of [place] female who appears normal for stated age and is casually dressed and groomed with good hygiene. She is ambulatory with a normal gait and has no psychomotor agitation or retardation. She is somewhat guarded in interview today. Eye contact is fair as she looks away often while talking. Speech is normal rate and rhythm and fluent with no pressure. Mood is anxious and depressed. Affect is constricted. Thought process is goal-directed and organized. Thought content: The patient is worried about panic attacks and has trouble leaving the house. There is no evidence of passive thoughts of , suicidal ideation, plan for suicide, homicidal ideation, hallucinations or delusions. Reality testing is intact. Intelligence is above average. Judgment is intact. Insight is limited but some present. Impulsivity is moderate. Diagnoses: 1. Panic disorder 2. Generalized anxiety disorder 3. Major depressive disorder, recurrent, moderate 4. Work issues Plan: The patient will continue the IOP and behavioral health at [facility] as the structure, support, education and group therapy will hopefully prevent worsening of the patient's symptoms which could require hospitalization. She felt safe during the interview and if it anytime she does not feel safe she agrees to let us know or go to the emergency room. The risk, options, possible complications and side effects of the medications were discussed with the patient and she understands accepts these. The patient will restart citalopram as previously scheduled. We will add hydroxyzine to utilize as needed to assist with anxiety symptoms without necessitating the use of lorazepam. Dr. Vences did mention possibly assessing thyroid however patient states that she believes she had labs in somewhat recent past however records are not available today.
--- NOTE | 2024-09-27 09:00 | BH.SGPN.GN ---
Behaviors/Verbalizations/Mental Status: [] Eye contact is poor. Motor activity is appropriate. Appearance is casual. Speech is Appropriate. Mood is depressed. Affect is flat. Thoughts are linear and logical. No evidence of psychosis. Reviewed daily check in sheet and no reports of suicidal ideations or intent Client Response/Progress/Benefit: [] Pt did not participate in group discussions. Declined to share during check-in. No progress noted. No benefit noted from group and she appeared disengaged and did not talk during discussions or check-in. Will continue in IOP to prevent decompensation, increase healthy coping, and decrease anxiety. Narrative Note: []
--- NOTE | 2024-09-27 10:10 | BH.SGPN.GN ---
Behaviors/Verbalizations/Mental Status: []Eye contact is fair. Motor activity is appropriate. Appearance is casual. Speech is Appropriate. Mood is anxious. Affect is congruent. Thoughts are linear and logical. No evidence of psychosis. Client Response/Progress/Benefit: [] Pt was an active participant in group discussions. Attentive during psychoeducation. Contributed during interactive discussions in which peers attempted to define crisis. Group identified crisis examples. Group also worked together to identify warning signs and unhealthy responses to crisis which included shutting down, isolation, avoidance, over-thinking, disordered eating, and self-harm. Pt identified top 3 warning signs as: not answering calls/texts, increased irritation, and isolation. Benefited from increased understanding of crisis and awareness of personal responses to crisis. Pt will continue IOP tx to reduce negative thinking patterns, improve mood stability, and increase distress tolerance. Narrative Note: []
--- NOTE | 2024-09-27 11:10 | BH.SGPN.GN ---
Behaviors/Verbalizations/Mental Status: []Pt alert and oriented, appropriate grooming/appearance. Eye contact fair. Motor activity appropriate. Speech within normal limits. Affect congruent, mood euthymic. Thoughts linear, logical, no signs of hallucinations or delusions. Client Response/Progress/Benefit: []Pt was an active participant in group discussions. Attentive during psychoeducation. In small group pt along with peers developed an active plan for their crisis warning signs. Pt identified three crisis warning signs as well as an action plan for each. One crisis warning sign was not answering calls/text. Pt identified strategies to help with this such as: opposite action, reaching out to at least one support person, and remind self she can just have a 1-2 minute conversation with someone to make connection. ?Benefited from increased awareness of crisis warning signs and by developing crisis intervention strategies. Will continue in IOP to decrease anxious avoidance, reinforce calming skills, and prevent decompensation.
--- NOTE | 2024-09-29 11:10 | BH.SGPN.GN ---
Behaviors/Verbalizations/Mental Status: []Client alert and oriented, casually dressed and groomed. Eye contact good. Motor activity appropriate. Speech within normal limits. Affect congruent, mood depressed and anxious. Thoughts linear, logical, no signs of hallucinations or delusions. Client Response/Progress/Benefit: [] Pt engaged in session AEB contributing to discussion and engaging in small group. Attentive during discussion on strategies for more effectively managing conflict in personal life. Pt participated in small group for activity and did well practicing how to manage conflict scenarios. Pt given handout on fair fighting rules and how to identify common conflict barriers. Pt indicated what needs improvement in conflict for them which was to ?have a gentle start? when addressing conflict. Appeared to benefit from gaining strategies to help Pt better manage conflict. Will continue IOP tx promote mood stability, reduce negative thinking patterns, and increase distress tolerance. Narrative Note: []
--- NOTE | 2024-09-29 14:08 | BH.MDN ---
Multi-Disciplinary Note Note 45-min Individual: Time Started:: 09:05 Date: 09/29/24 Purpose of session/treatment goals addressed:: Purpose of session was to address goals 1 and 2 from MTP. Eye Contact:: Fair Motor Activity:: Appropriate Appearance:: Casual Speech:: Appropriate Mood:: Anxious and Irritable Affect:: Constricted Thoughts:: Linear, Logical and No evidence of hallucinations/delusions noted Staff Interventions:: thought challenging, CBT techniques, strengths perspective, goal setting and taught coping skills Client Response:: Client stated I am over everything this week and the last. Client stated she has not wanted to be around others and is not really seeing progress in herself. Client stated she is feeling worse of the last week and a half and on edge. Client open to processing current feelings and thoughts about how things have been going over the last week and a half. Through discussion with therapist she realizes that her current functioning is much better compared to prior to coming to IOP. Client recognizes prior to IOP and treatment she was not able to go to work, was not hanging out with people, not going to family events, and difficulty with her home functioning. Client stated she is still not back to fully functioning like she would like to but recognizes that she is able to go to work and that time does not have to take her anxiety medication. Client stated she also has engaged in more socialization than before she started treatment. Client reported she realizes that sometimes when she is struggling she has a difficult time seeing how far she has come. Client stated over the last week and a half she has shut down more by doing the bare necessity and laying around after doing those required tasks. Client worked with therapist to create a game plan for the week to help increase motivation and improve view of her current functioning. Client and therapist wrote down a list of task that includes chores around the house to make her feel like she is contribution and added self-care items. Client reported she has been utilizing deep breathing and guided meditation skills which she can note benefit to decreasing her anxiety in the moment. Client has been trying to utilize exposure goal by going to stores even when her anxiety is telling her to not going to the store. Client shared at end of session that she is feeling slightly better and realizes that she is making more progress than she is given herself credit for. Client agreeable to focus on getting back to the basics of decreasing napping, getting the chore list completed that was created in session today, and engaging in self-care. Risks/Concerns:: Denies suicide ideation, plan, intention. Future oriented. 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 Client open 2 being slightly challenged by therapist and able to recognize that she has made more progress than she has been giving herself credit for recently. Client stated she is not sure why she is feeling more irritable but recognizes that this is likely contribution to why she has been not engaging in her skills or other activities. Client open to challenging her thought patterns and willing to get back to the basics of what will help her feel better. Client agreeable to engage in opposite action and behavior activation to help offset recent depression and anxiety spike. Client to continue IOP to increase consistent use of healthy coping skills, challenge distortions, and prevent decompensation. Time Stopped:: 09:50
--- NOTE | 2024-10-04 09:05 | BH.SGPN.GN ---
Behaviors/Verbalizations/Mental Status: [] Eye contact is poor. Motor activity is appropriate. Appearance is casual. Speech is Appropriate. Mood is depressed/irritable. Affect is full. Thoughts are linear and logical. No evidence of psychosis. Reviewed daily check in sheet and no reports of suicidal ideations or intent. Client Response/Progress/Benefit: [] Pt participated when prompted. Attentive at times. Daily symptom tracker notes 4/5 for irritability and 3/5 for anxiety. Reports being irritable today. Brief and superficial check-in which is baseline. Able to identify health skills utilized this weekend which involved self-care, not isolation, being social, and engaging with her ac. Limited progress noted. Beneifted from group support and encouragement. Will continue in IOP to prevent decompensation, increase healthy coping, and improve functioning. Narrative Note: []
--- NOTE | 2024-10-04 10:10 | BH.SGPN.GN ---
Behaviors/Verbalizations/Mental Status: []Patient was alert and oriented, casually dressed and groomed. Eye contact good. motor activity appropriate. speech within normal limits. Affect congruent, mood calm. Thoughts linear, logical, no signs of hallucinations or delusion. Client Response/Progress/Benefit: [] Pt participated in the group discussions AEB providing input, nodding and taking notes. Attentive during psychoeducation Goal Setting. Participated during the discussion on common barriers. Pt stated personal barriers to accomplishing goals include feeling tired, lack of motivation, and not planning things. Group also identified benefits of goals as sense of purpose, improved self-confidence, more motivation for other goals, sense of accomplishment, and improved mental health. Pt identified personal benefits to goal setting. Benefited from increased awareness of mental health benefits of goals as well as psychoeducation on SMART goal criteria. Will continue in IOP to promote use of healthy coping skills, improve daily functioning, and reduce negative thinking patterns. Narrative Note: []
--- NOTE | 2024-10-04 11:10 | BH.SGPN.GN ---
Behaviors/Verbalizations/Mental Status: [] Pt alert and oriented. Appearance is casual. Eye contact good. Motor activity appropriate. Speech within normal limits. Affect is dysthymic. Mood is congruent. Thoughts linear, logical, no signs of hallucinations or delusions. Client Response/Progress/Benefit: [] Pt was attentive during discussion and participated during experiential activity. Completed the worksheet challenging them to develop a personal SMART goal. Pt chose a SMART goal to be more attentional with spending more quality time with my children next weekend. Believes this goal will benefit them by increasing engagement with support. Identified obstacles such as no motivation and being tired fatigued. Benefited from this group by developing a short-term SMART goal related to mental health. Will continue IOP to prevent decompensation, increase healthy coping, and improve functioning. Narrative Note: []
--- NOTE | 2024-10-07 09:05 | BH.SGPN.GN ---
Behaviors/Verbalizations/Mental Status: []? Eye contact is good. Motor activity is appropriate. Appearance is casual. Speech is Appropriate. Mood is anxious. Affect is congruent. Thoughts are linear and logical. No evidence of psychosis. Reviewed daily check in sheet and no reports of suicidal ideations or intent? Client Response/Progress/Benefit: []? Pt engaged throughout, providing supportive feedback. Did well to identify mental health wins, which included feeling more confident in working on addressing her social anxiety through small exposure goals.?Additional win noted as challenging herself to use opposite action to clean after leaving group Friday rather than nap. Stressor noted as feeling more anxious about next week being her last week. Recommended continued IOP tx to maintain mood stability, increase self-compassion, and prevent decompensation.? Narrative Note: []
--- NOTE | 2024-10-07 17:10 | BH.MDN ---
Multi-Disciplinary Note Note 45-min Individual: Time Started:: 10:10 Date: 10/07/24 Purpose of session/treatment goals addressed:: Purpose of session was to address goals 1 and 2 from MTP. Eye Contact:: Fair Motor Activity:: Appropriate Appearance:: Casual Speech:: Appropriate Mood:: Anxious Affect:: Congruent Thoughts:: Linear, Logical and No evidence of hallucinations/delusions noted Staff Interventions:: thought challenging, CBT techniques, strengths perspective and goal setting Client Response:: Client reported she did follow through with some of the list created in last individual session. Client stated she was able to clean her bedroom which she noted she could see improvement in her mood after accomplishing something around the house. Client stated she engaged in exposure goal of going to a event for her daughter that was around a lot of people. Client stated she was able to stay at the event for 45 minutes which is longer than she had expected. Client reported additional exposure goal was choosing to open up to her mother about everything that she has been going through with her mental health in the last few months. Client stated she had been distancing herself from her mom and did not let her mom know until this weekend that she has been in treatment and that she has not been doing so well. Client stated partly she opened up to her mom because she was feeling bad for distancing herself but recognizes no longer hiding with been going on was helpful for her. Client reported earlier this week she had her first panic attack in a month. Client stated she had tried her coping skills in the moment but they did not work. Client stated the rest of the day she was agitated because she had been doing so well with not having panic attacks. Client stated on Friday she did call off work due to not being able to sleep the night before. Client recognizes she continues this pattern of behavior she is going to stay stuck in the cycle. Client and therapist discussed plan for the rest of today and the weekend that will help her break the anxious and depressed cycle. Client stated she is starting to feel anxious about discharging from IOP because she has grown to enjoy the support that she is been getting and does see that she has made significant progress compared to how she was doing prior to IOP. Client agreeable for homework to reach out to provided individual counselors so that she can establish with aftercare. Risks/Concerns:: Denies suicide ideation, plan, or intention. Future oriented. Progress Toward Goals/Plan:: Progress noted with client reporting working on anxiety exposure goal by going to a school event for her daughter. Client stated she was able to stay at this event for longer than expected by using her healthy coping skills. Client does report recent panic attack for the first time in 4 weeks. Client started to engage in more sabotage behaviors because of feeling agitated that she had a panic attack after doing so well. Client open to getting back to using the coping skills that has helped her feel better and decrease isolation. Plan is for client to continue IOP to continue use of healthy coping skills, challenge distortions, and prevent decompensation. Time Stopped:: 11:00
--- NOTE | 2024-10-08 09:05 | BH.SGPN.GN ---
Behaviors/Verbalizations/Mental Status: [] Eye contact is good. Motor activity is appropriate. Appearance is casual. Speech is Appropriate. Mood is irritable/anxious. Affect is congruent. Thoughts are linear and logical. No evidence of psychosis. Reviewed daily check in sheet and no reports of suicidal ideations or intent. Client Response/Progress/Benefit: [] Pt participated when prompted. Daily symptom tracker notes 4/5 for irritability and 3/5 for anxiety. Very brief and superficial check-in was is baseline. Mental health win was setting up and following through with a social event. Emotion for today is ?Anxious?. Stressors related to housing and finances. Progress noted. Benefited from group support, encouragement, and feedback. Will continue in IOP to prevent decompensation, stabilize anxiety, and increase healthy coping skills. Narrative Note: []
--- NOTE | 2024-10-08 10:10 | BH.SGPN.GN ---
Behaviors/Verbalizations/Mental Status: [] Client alert and oriented, casually dressed and groomed. Eye contact fair. Motor activity appropriate. Speech within normal limits. Affect congruent, mood content. Thoughts linear, logical, no signs of hallucinations or delusions. Client Response/Progress/Benefit: [] Pt responded well to session AEB sharing and listening attentively to others. Group provided examples of benefits of having social support, including: validation, get assistance, and accountability. Pt also participated in group discussion regarding the barriers to accessing support identifying examples to include: negative thinking, lack of communication, and lack of trust. Pt participated in experiential activity illustrating the impact communication, boundaries, and patience play in creating healthy support systems. Pt appeared to benefit from increased knowledge of the benefits of social support and greater self-awareness. Pt to continue IOP to improve distress tolerance, increase consistent use of healthy coping skills, and prevent decompensation. Narrative Note: []
--- NOTE | 2024-10-08 11:10 | BH.SGPN.GN ---
Behaviors/Verbalizations/Mental Status: []Client alert and oriented, casually dressed and groomed. Eye contact good. Motor activity appropriate. Speech within normal limits. Affect congruent, mood anxious. Thoughts linear, logical, no signs of hallucinations or delusions. Client Response/Progress/Benefit: [] Pt participated throughout AEB contributing to discussion, providing examples, and taking notes. Pt provided input during discussion on the types of support our supports can provide. Pt able to identify current support system and barriers that get in the way of using supports. Pt reported after identifying what type of supports pt receives, pt gained awareness that pt could benefit from more emotional support by continuing to challenge herself to reach out and be honest. Pt seemed to benefit from identifying the type of support pt needs to work on improving. Pt recommended to continue IOP tx to promote mood stability, reduce negative thinking patterns, and improve daily functioning. Narrative Note: []
== END 2024-10-08 23:59 ==
LOC: BHIOP 07:15
PROVIDERS: Referring Provider Psychiatry & Neurology Psychiatry; Visit Provider Psychiatry & Neurology Psychiatry
DX: F41.0 Panic disorder [episodic paroxysmal anxiety] (principal); F41.1 Generalized anxiety disorder; F33.0 Major depressive disorder, recurrent, mild
CPT/HCPCS: H2012; H2020; S9480; 90832; 90834

== ENCOUNTER 2024-10-11 07:34 | Outpatient (RCR) | payer MEDICAID, SELFPAY ==
[2024-10-09 01:21] VITALS: BP 148/99; PULSE 79
--- NOTE | 2024-10-11 09:00 | BH.SGPN.GN ---
Behaviors/Verbalizations/Mental Status: [] Eye contact is good. Motor activity is appropriate. Appearance is casual. Speech is Appropriate. Mood is anxious. Affect is congruent. Thoughts are linear and logical. No evidence of psychosis. Reviewed daily check in sheet and no reports of suicidal ideations or intent. Client Response/Progress/Benefit: [] Pt participated at times. Attentive. Daily symptom tracker notes 3/5 for anxiety and 2/5 for irritability. Shared with the group that this is her last week in IOP as she is scheduled to discharge successfully. She is anxious however feels that she is ready. Identified a significant win over the weekend as she was able to make it through the weekend w/o using PRN anxiety medications. Insight that this indicates she has increased her coping strategies for anxiety. Progress noted. Benefited from group support, encouragement, and feedback. Will continue in [facility] to prevent decompensation, stabilize anxiety, and increase healthy coping. Narrative Note: []
--- NOTE | 2024-10-11 10:10 | BH.SGPN.GN ---
Behaviors/Verbalizations/Mental Status: [] Eye contact is fair. Motor activity is appropriate. Appearance is casual. Speech is Appropriate. Mood is euthymic. Affect is congruent. Thoughts are linear and logical. No evidence of psychosis. Client Response/Progress/Benefit: [] Pt was an active participant in group discussions. Attentive during psychoeducation on the 4 communication styles (Passive, Passive-Aggressive, Aggressive, and Assertive) and the obstacles to effective communication. Contributed during interactive discussion on the benefits of communicating effectively. Worked well with peers to identify the benefits and disadvantages to the different communication styles. Pt believes that she is primarily passive and aggressive and gave examples of recent events. Able to identify the impact this has on relationships/family. Benefited from increased understanding of communication styles and how these can impact effective communication. Will continue in IOP to promote healthy coping, challenge distortions, and prevent decompensation.
--- NOTE | 2024-10-11 11:15 | BH.SGPN.GN ---
Behaviors/Verbalizations/Mental Status: []Pt alert and oriented, casually dressed and groomed. Eye contact good. Motor activity appropriate. Speech within normal limits. Affect congruent, mood dysthymic and anxious. Thoughts linear, logical, no signs of hallucinations or delusions. Client Response/Progress/Benefit: [] Pt responded well to session AEB Pt listening attentively to others and providing input during group discussion on the pay offs and costs of the different communication styles. Pt able to connect how current communication style impacts mental health. Connected with peers? comments about importance of using assertive communication. Pt seemed to benefit from increasing awareness of healthy strategies to improve communication and worked within small group to identify assertive communication approaches to example scenarios. Identified wanting to work on ?not being so aggressive at the start of conversations? when communicating with others. Will continue IOP tx to prevent decompensation, improve mood stability, and improve daily functioning. ? Narrative Note: []
--- NOTE | 2024-10-12 09:00 | BH.SGPN.GN ---
Behaviors/Verbalizations/Mental Status: [] Eye contact is good. Motor activity is appropriate. Appearance is casual. Speech is Appropriate. Mood is anxious and content. Affect is congruent. Thoughts are linear and logical. No evidence of psychosis. Reviewed daily check in sheet and no reports of suicidal ideations or intent. Client Response/Progress/Benefit: [] Pt was an active participant in group discussions. Attentive. Did well to identify 2 mental health wins. Wins included making it a priority to go to her sister's house and spend quality time with her rather than isolate like she had been doing in the past. Additional win noted as this being [place] in [place] and following-through with completing the program. Stressor reported as trying to find a new place to live as her daughter recently switched schools due to bullying. Receptive of and appearing to benefit from group support, encouragement, and feedback. Will continue in IOP for one more day to prevent decompensation, promote mood stability, and increase consistent use of healthy coping. Narrative Note: []
--- NOTE | 2024-10-12 10:15 | BH.SGPN.GN ---
Behaviors/Verbalizations/Mental Status: []Pt alert and oriented, casually dressed and groomed. Eye contact good. Motor activity appropriate. Speech within normal limits. Affect congruent, mood euthymic. Thoughts linear, logical, no signs of hallucinations or delusions. Client Response/Progress/Benefit: [] Pt responded well to session, attentive and engaged. Group participated in the discussion defining stigma as well as what stigma has kept pt's from doing in their lives. Pt stated mental health stigma has kept pt from getting mental health treatment and taking medication in the past. Pt worked with peers to begin discussion of what reinforces stigma, both socially and internally, and this was discussed further in the next group. Pt appeared to benefit from learning about the different types of stigma as well as gaining awareness of how stigma has personally impacted pt. Pt will continue IOP tx to promote gains and reinforce healthy coping skills. ? Narrative Note: []
--- NOTE | 2024-10-12 11:15 | BH.SGPN.GN ---
Behaviors/Verbalizations/Mental Status: []Pt alert and oriented, casually dressed and groomed. Eye contact fair. Motor activity appropriate. Speech within normal limits. Affect congruent, mood euthymic. Thoughts linear, logical, no signs of hallucinations or delusions. Client Response/Progress/Benefit: [] Pt engaged participant AEB participating in the activity, providing input during small group discussion, and listening attentively to others. Pt appeared to connect with discussion in the benefits of addressing mental health stigma which included: improved relationships, increased willingness to seek help, increased happiness, and improved confidence. Group brainstormed strategies to combat social and perceived stigma. Pt identified that they contribute to stigma by using negative mental health labels like I should be in the crazy house. Pt shared one thing pt can do to combat stigma is to limit social media usage and continue outpatient therapy. Appeared to benefit from increasing awareness of strategies to combat stigma. Pt is to continue IOP to challenge negative thoughts, promote healthy coping, and prevent decompensation.
--- NOTE | 2024-10-13 09:02 | BH.SGPN.GN ---
Behaviors/Verbalizations/Mental Status: [] Client alert and oriented, casual appearance. Eye contact good. Motor activity appropriate. Speech within normal limits. Affect congruent, mood euthymic and slightly anxious. Thoughts linear, logical, no signs of hallucinations or delusions. Reviewed client's symptom tracker, no risk for suicidal ideation, plan, or intent. Client Response/Progress/Benefit: [] Client responded well to session AEB listening to others and sharing thoughts/feelings. Client noted mental positive as graduating IOP today. Client stated she has noticed significant treatment progress since starting IOP with reduction in her anxiety and improved daily functioning. Client stated additional mental positive as going to dinner with her friend the other night. Client stated current stressor as feeling anxious about being done with IOP because it has become a source of support. Appeared to benefit from support from peers. Client demonstrated significant treatment progress and will discharge from IOP today. Narrative Note: []
--- NOTE | 2024-10-13 10:10 | BH.SGPN.GN ---
Behaviors/Verbalizations/Mental Status: [] Pt alert and oriented, casually dressed and groomed. Eye contact good. Motor activity appropriate. Speech within normal limits. Affect full, mood content. Thoughts linear, logical, no signs of hallucinations or delusions. Client Response/Progress/Benefit: [] Pt was an engaged participant AEB listening attentively to others, taking notes, and providing feedback in group discussions. Attentive during psychoeducation AEB by note taking. Pt worked along with peers in groups to define inappropriate guilt and appropriate guilt. Group worked together to provide examples of both inappropriate and appropriate guilt. Group identified a canceling plans and snapping at kids as appropriate guilt examples. Group identified setting a being in a down mood and taking responsibility for other?s emotions as having inappropriate guilt. Pt able to connect impact inappropriate guilt can have on MH and overall functioning. Identified struggling at times with taking on other's emotions resulting in inappropriate guilt. Benefited from increased awareness of guilt and the differences between appropriate and inappropriate guilt. Pt to continue IOP tx to prevent decompensation, gain healthy coping skills, and increase self-confidence. Narrative Note: []
--- NOTE | 2024-10-13 12:12 | PCM.BH.PN ---
Progress Note Progress Note: History of Present Illness/Interim History: The patient is a 34-year-old female with a history of anxiety, depression and panic attacks who is seen in follow-up at the [facility]. I last saw the patient 3 weeks ago and she was supposed to restart on her Celexa. The patient took the Celexa for about 1 week but discontinued it because she states that she does not like medications. She feels that she is improving from the group therapy and individual therapy and is doing well despite stopping the Celexa. Her last panic attacks was 2 weeks ago. She last took Ativan for panic attack 2 weeks ago. Her sleep is still good at 7 hours rate a night. She denies any passive thoughts of , suicidal ideation, homicidal ideation, hallucinations or delusions. Current Psychiatric Medications: [] Celexa discontinued several weeks ago by the patient. Ativan 0.5 mg as needed up to twice daily (patient last took it 2 weeks ago) Mental Status Examination: [] The patient is a 34-year-old -[place] female who appears normal for stated age and is casually dressed and groomed with good hygiene. She has no psychomotor agitation or retardation and is ambulatory with a normal gait. She is cooperative today and much less guarded than last visit. Eye contact is fair to good. Speech is normal rate and rhythm and fluent with no pressure. Mood is mildly anxious. Affect is minimally constricted. Thought process is goal-directed and organized. Thought content: The patient is hopeful for the future and feels she is improving. There is no evidence of passive thoughts of , suicidal ideation, plan for suicide, homicidal ideation, hallucinations or delusions. Reality testing is intact. Judgment is intact. Insight Limited but improving. Impulsivity is moderate. Diagnoses: [] 1. Panic disorder 2. Generalized anxiety disorder 3. Major depressive disorder, recurrent, mild 4. Work issues Plan: [] The patient will be discharged from the [facility] today as she has improved. She felt safe during the interview and has agreed to let us know or go to the emergency room of if it anytime she does not feel safe. No medication changes were made today. The patient will continue to follow-up with her outpatient providers.
--- NOTE | 2024-10-13 13:54 | BH.DS_ITS ---
Discharge Summary Demographics Date of Admission:: 08/17/24 Discharge Date: 10/13/24 Presenting Problems at Admission:: The patient is a 34-year-old female with a history of anxiety and depression and panic attacks who was referred by a friend to the [facility] behavioral [facility] IOP due to new onset of daily panic attacks since June 2024. The patient states that her symptoms started June 29, 2024 when she had her first possible panic attack at work and went to urgent care but they told her the symptoms were more likely due to her history of migraine headaches. Several days later the patient had a severe panic attack at her uncle's and went to the emergency room and was given Ativan which helped her symptoms. The patient was off work for 3 weeks but has since returned to work after her primary care doctor prescribed Ativan. She endorses sadness, low motivation, hopelessness but denies worthlessness. She endorses guilt, anhedonia, low energy. She is sleeping about 5 hours a night. She is having 4-5 panic attacks a week. Discharge Diagnoses:: 1. Panic disorder F41.0 2. Generalized anxiety disorder 3. Major depressive disorder, recurrent, mild Reason for Discharge:: Client has made significant treatment progress, met her treatment goals, and no longer meets medical necessity for IOP level of care. Treatment Progress During Treatment & Response: Progress noted as evidenced by DSM-5 cross cutting measure score at discharge. Per DSM-5 client's depression has decreased by 57%, irritability has decreased by 33%, anxiety has decreased by 58%, and overall mental symptoms have decreased by 59% when compared to admission IOP scores. Client initially was guarded at start of program, but after a couple of weeks she started to open up more individually and in group sessions. Prior to IOP client was struggling with panic attacks several times a week and couldn't go to work without taking Ativan to get through the day. Client has reported one panic attack in the last 5 weeks and has been able to go to work for the last two weeks without needing Ativan. Client has reported use of belly breathing and grounding tools to help her get through her day. Client consistently attended IOP, often passive participant in IOP, and engaged in individual sessions. Client often followed through with homework provided in individual sessions. Issues Still to be Addressed:: Client could benefit from couples counseling to address some marital issues, continued work on exposure goals to situations that make her anxious, and reinforcement of healthy coping skills. Discharge Recommendations/Instructions:: Client has appointment with [facility] next week. Client is not taking any psychiatric medications so did not want a referral for a psychiatrist. Discharge Handout
--- NOTE | 2024-10-13 18:12 | BH.MDN_ITS ---
Multi-Disciplinary Note Note 45-min Individual: Time Started:: 11:20 Date: 10/13/24 Purpose of session/treatment goals addressed:: Purpose of session was to review treatment progress, complete maintenance plan, and review aftercare plans. Eye Contact:: Good Motor Activity:: Appropriate Appearance:: Neat Speech:: Appropriate Mood:: Euthymic Affect:: Full Thoughts:: Linear, Logical and No evidence of hallucinations/delusions noted Staff Interventions:: CBT techniques, discharge planning, strengths perspective, reviewed DSM-5 and other (Maintenance Plan) Client Response:: Client reported feeling excited today is her last day but also anxious because she is going to miss the support and connection she received the coming to [facility]. Client stated she has noticed significant treatment progress compared to when she first started [facility]. Client reported it took her a couple weeks in [facility] before she opened up and let her guard down. Client stated prior to [facility] she was having to take Ativan every day in order to function at work but has been able to go to work the last 2 weeks without any Ativan. Client reported she utilizes belly breathing and grounding tools to help her manage her anxiety in the moment which has helped improve her functioning at work. Client stated she has had 1 panic attack in the last 5 weeks which is significant progress because she was having panic attacks multiple times in a week. Client reported she still struggles with some anxiety that keeps her from getting out of the house but has been putting more effort into scheduling hangouts with her family and friends. Client recently was able to go to a school event for one of her children which is something that she had been avoiding due to the crowd. Client worked with therapist to complete maintenance plan in which she identified potential triggers, warning signs that her mental health is declining, self-care activities, and healthy coping skills that will help her maintain progress made. Client stated feeling ready for discharge and knows that she has to told she needs to manage her anxiety in the moment. Risks/Concerns:: Client denies suicide ideation, plan, intention. Future oriented. Progress Toward Goals/Plan:: Progress noted as evidenced by DSM-5 cross cutting measure score at discharge. Per DSM-5 client's depression has decreased by 57%, irritability has decreased by 33%, anxiety has decreased by 58%, and overall mental symptoms have decreased by 59% when compared to admission IOP scores. Plan is for client to discharge from [facility] today. Client is not currently taking any psychiatric medications so did not want referrals to psychiatry. Client has appointment scheduled at [facility] next week. Time Stopped:: 12:05
== END 2024-10-13 12:35 | disposition home or self-care (01) ==
LOC: BHIOP 07:34
PROVIDERS: Referring Provider Psychiatry & Neurology Psychiatry; Visit Provider Psychiatry & Neurology Psychiatry
DX: F41.0 Panic disorder [episodic paroxysmal anxiety] (principal); F41.1 Generalized anxiety disorder; F33.0 Major depressive disorder, recurrent, mild
CPT/HCPCS: H2012; H2020; S9480; 90834